=== PATIENT | female | born 1980 | race Caucasian/White ===

== ENCOUNTER 2018-11-06 14:34 | Emergency (ER) | payer OTHER ==
[2018-11-06 14:42] VITALS: BP 125/82
[2018-11-06] MEDS ORDERED: RABIES IMMUNE GLOBULIN/PF 300 UNIT/ML VIAL IF ONE (15:07)
[2018-11-06] MEDS ORDERED: RABIES VACC, HUMAN DIPLOID/PF 2.5 UNIT VIAL (RABAVERT) IM ONE (15:07)
--- NOTE | 2018-11-06 15:09 | EDPHY ---
H & P Stated Complaint: "need rabbies vaccine" Time Seen by Provider: 11/06/18 14:42 - Personal History LMP (Females 10-55): IUD In Place Current Tetanus/Diphtheria Vaccine: Yes Current Tetanus Diphtheria and Acellular Pertussis (TDAP): Yes - Medical/Surgical History Hx Asthma: No Hx Chronic Respiratory Disease: No Hx Diabetes: No Hx Cardiac Disease: No Hx Renal Disease: No Hx Cirrhosis: No Hx Alcoholism: No Hx HIV/AIDS: No Hx Splenectomy or Spleen Trauma: No Other PMH: knee and back surgery - Social History Smoking Status: Never smoked Constitutional: Initial Vital Signs Temperature (C) 37 C 11/06/18 14:39 Heart Rate 73 11/06/18 14:39 Respiratory Rate 16 11/06/18 14:39 Blood Pressure 125/82 H 11/06/18 14:39 O2 Sat (%) 99 11/06/18 14:39 O2 Delivery Mode Room Air Allergies/Adverse Reactions: No Known Allergies Allergy (Unverified 11/06/18 14:38) Home Medications: Medication Instructions Recorded Spironolactone 11/06/18 Medical Decision Making ED Course/Re-evaluation: CHIEF COMPLAINT: Rabies exposure HISTORY OF PRESENT ILLNESS: The patient is a 38 y/o female complaining of a rabies exposure today. 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 The dog needed to be brought to the clinic for a rabies vaccination. As the patient touched and was exposed to the dog that was exposed to rabies, she decided to present to the emergency department. There were a total of 4 people at the veterinary clinic that are in this emergency department. No fever, headache, body aches, lightheadedness, chest pain, heart palpitations, shortness of breath, cough, abdominal pain, urinary or bowel complaints, numbness, paresthesias. REVIEW OF SYSTEMS: A 10 point review of systems was performed and is negative with the exception of the elements mentioned in the history of present illness. PHYSICAL EXAM: HR, BP, O2 Sat, RR. Temp noted General Appearance: Alert, well hydrated, appropriate, and non-toxic appearing. Head: Atraumatic without scalp tenderness or obvious injury Eyes: Pupils equal, round, reactive to light and accommodation, EOMI, no trauma , no injection. Ears: Clear bilaterally, no perforation, normal landmarks Nose: Atraumatic, no rhinorrhea, clear. Throat: There is no erythema or exudates, no lesions, normal tonsils, mucus membranes moist. Neck: Supple, 2+ carotid upstroke, nontender, no lymphadenopathy. Respiratory: No retractions, no distress, no wheezes, and no accessory muscle use. Lungs are clear to auscultation bilaterally. Cardiovascular: Regular rate and rhythm, no murmurs, rubs, or gallops. Bilateral carotid, radial, dorsalis pedis, and posterior tibial pulses intact. Good capillary refill all extremities. Gastrointestinal: Abdomen is soft, nontender, non-distended, no masses, no rebound, no guarding, no peritoneal signs. Musculoskeletal: Normal active ROM of all extremities, atraumatic. Neurological: Alert, appropriate, and interactive. The patient has normal DTRs and non-focal cranial nerves, motor, sensory, and cerebellar exam. Skin: No rashes, good turgor, no nodules on palpation. Past medical history: Noncontributory Past surgical history: Noncontributory Family history: Noncontributory Social history: Employed at a vet clinic, lives in [place], does not abuse drugs, tobacco or alcohol DIAGNOSTICS/PROCEDURES/CRITICAL CARE TIME: Not indicated. DIFFERENTIAL DIAGNOSIS: The differential diagnosis for the patient's complaint includes but is not limited to rabies exposure, rabies, dog bite, viral infection, cellulitis, bacterial infection, fungal infection. MEDICAL DECISION MAKING: The patient is a 38 y/o female complaining of a rabies exposure today. 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 The dog needed to be brought to the clinic for a rabies vaccination. As the patient touched and was exposed to the dog that was exposed to rabies, she decided to present to the emergency department. She has a completely normal physical exam. I will give her the immunoglobulin as well as day 0 of the rabies invaccination. She will need day 3, 7, and 14 of the vaccination at the [facility]. Return precautions provided; patient is comfortable with this plan. I consulted with Dr. Banerjee, infectious disease, regarding this patient. - Data Points Medications Given: Discontinued Medications Rabies Immune Globulin (Hyperrab 300 Unit/Ml) 1,680 unit IF .ONCE ONE Stop: 11/06/18 16:01 Last Admin: 11/06/18 17:12 Dose: 1,680 unit Rabies Vaccine Human Diploid Cell (Rabavert) 2.5 unit IM .ONCE ONE Stop: 11/06/18 15:08 Last Admin: 11/06/18 17:07 Dose: 2.5 unit Departure - Departure Disposition: Home, Routine, Self-Care Clinical Impression: Rabies exposure Condition: Good Instructions: Rabies Vaccine (By injection), Rabies Immune Globulin (By injection), Rabies (ED), Rabies Vaccine (ED) Additional Instructions: 1. You received the rabies immunoglobulin today 2. You received day 0 of the rabies vaccination. You will need vaccinations on day 0, 3, 7, and 14. Please go to the [facility] for the following rabies vaccinations. 3. Return to the Emergency Department for fever, chest pain, shortness of breath , increasing pain or other worsening of condition. 4. It is safe for you to return to work without an restrictions or limitations. Referrals: [facility] (ED,. [Edm Groups for Call Sched] - As per Instructions Report Scribed for: Denis Hopkins Report Scribed by: Janeen Mayorga Date of Report: 11/06/18 Time of Report: 15:12
[2018-11-06] MEDS ORDERED: RABIES IMMUNE GLOBULIN/PF 1,500 UNIT/5 ML VIAL IF ONE (16:00)
== END 2018-11-06 17:31 | disposition home or self-care (01) ==
DX: Z20.3 Contact with and (suspected) exposure to rabies (principal); Z23 Encounter for immunization; Y99.0 Civilian activity done for income or pay